=== PATIENT | female | born 1970 | race Caucasian/White ===

== ENCOUNTER 2018-04-03 15:26 | Emergency (ER) | payer OTHER ==
[2018-04-03] MEDS: KETOROLAC 30 MG INJ IM (17:46)
== END 2018-04-03 17:51 | disposition home or self-care (01) ==
LOC: FTE 15:26
DX: M54.2 Cervicalgia (principal); M79.601 Pain in right arm
CPT/HCPCS: 72040; 73060-RT; 81025; 96372; 99284-25